=== PATIENT | female | born 1940 | race Caucasian/White ===

== ENCOUNTER → 2017-09-16 | Outpatient (CLI) | payer OTHER ==
[~2017-09-16] MED LIST: ASPIR 8181 MG PO; ATORVASTATIN CA40 MG PO; DILTIAZEM 24HR180 M3 PO; LEVOTHYROXIN0.025 MG PO; PRADAXA150 MG PO
--- NOTE | ~2017-09-16 | 2DMMODE ---
[facility] [address] [place] [address] 2 D/M-MODE ECHOCARDIOGRAM Name: AARON MITCHELL Room #: REG [facility]#: [id number] Admission: 09/16/17 Attend Phys: Jerry Mccauley Discharge: Date of : 38 Date of Service: 09/16/17 1611 Report #: [id number] THIS REPORT FOR: //name// APPROVED REPORT Study performed: 09/16/2017 14:45:59 EXAM: Comprehensive 2D, Doppler, and color-flow Echocardiogram Patient Location: Out-Patient Status: routine BSA: 1.82 HR: 81 bpm BP: 132/83 mmHg Rhythm: Atrial Fibrillation Other Information Study Quality: Adequate Indications Atrial Fibrillation Pacemaker 2D Dimensions RVDd: 33.81 mm LVEF(%): 55.76 (>50%) IVSd: 8.77 (7-11mm) LVOT Diam: 19.85 (18-24mm) LVDd: 45.71 mm PWd: 9.36 (7-11mm) LVDs: 32.47 (25-40mm) Aortic Root: 31.60 mm Wynn's LVEF: 55.76 % Volumes Left Atrial Volume (Systole) Single Plane 4CH: 52.63 mL Single Plane 2CH: 50.56 mL Aortic Valve AoV Peak Prudencio.: 1.10 m/s AO Peak Gr.: 6.45 mmHg LVOT Max P.61 mmHg LVOT Max V: 0.95 m/s DARREL Vmax: 2.67 cm2 Mitral Valve MV Decel. Time: 207.19 ms MV E Max Prudencio.: 0.80 m/s [facility] [address] [place] [address] 2 D/M-MODE ECHOCARDIOGRAM Name: PAULACAMAARONANDRÉS GARCIAEN Room #: [facility]#: [id number] Admission: 09/16/17 Attend Phys: Jerry Mccauley Discharge: Date of : 38 Date of Service: 09/16/17 1611 Report #: [id number] Pulmonary Valve PV Peak Prudencio.: 0.78 m/s PV Peak Gr.: 2.46 mmHg Tricuspid Valve TR Peak Prudencio.: 2.24 m/s RAP Estimate: 5.00 mmHg TR Peak Gr.: 20.10 mmHg PA Pressure: 25.00 mmHg Left Ventricle The left ventricle is normal size. There is normal left ventricular wall thickness. The left ventricular systolic function is normal. LVEF is 55%. This study is not technically sufficient to allow evaluation of the LV diastolic function due to atrial fibrillation. Right Ventricle The right ventricle is normal size. The right ventricular systolic function is normal. Atria Left atrium is mildly dilated. Right atrium is at the upper limits of normal. A pacemaker is seen in the right atrium consistent with history. Aortic Valve The Aortic valve is sclerotic. Trace aortic regurgitation. There is no aortic valvular stenosis. Mitral Valve Mild mitral annular calcification. The mitral valve is mildly thickened. Mild mitral regurgitation. No evidence of mitral valve stenosis. Tricuspid Valve The tricuspid valve is normal in structure. Mild to moderate tricuspid regurgitation. Estimated PAP 25 mmHg. Pulmonic Valve The pulmonary valve is normal in structure. Mild pulmonic regurgitation. Great Vessels The aortic root is normal in size. IVC is normal in size and collapses >50% with inspiration. [facility] [address] [place] [address] 2 D/M-MODE ECHOCARDIOGRAM Name: AARON MITCHELL Room #: REG [facility]#: [id number] Admission: 09/16/17 Attend Phys: Jerry Mccauley Discharge: Date of : 38 Date of Service: 09/16/17 1611 Report #: [id number] Pericardium There is no pericardial effusion. <Conclusion> The left ventricle is normal size. LVEF is 55%. Left atrium is mildly dilated. Right atrium is at the upper limits of normal. A pacemaker is seen in the right atrium consistent with history. The Aortic valve is sclerotic. Trace aortic regurgitation. Mild mitral annular calcification. The mitral valve is mildly thickened. Mild mitral regurgitation. The tricuspid valve is normal in structure. Mild to moderate tricuspid regurgitation. Estimated PAP 25 mmHg. The pulmonary valve is normal in structure. Mild pulmonic regurgitation. There is no pericardial effusion. <ELECTRONICALLY SIGNED> By: Rick Tong MD 09/16/17 161 10 10 Rick Tong MD /INF
[2017-09-16 16:03] LABS: CALCIUM 8.9 mg/dL (8.5-10.1); CREATININE 0.9 mg/dL (0.6-1.0); POTASSIUM 4.1 mmol/L (3.5-5.1)
[2017-09-16 16:09] LABS: ALBUMIN 3.7 g/dL (3.4-5.0); TOTAL BILIRUBIN 0.6 mg/dL (<0.1-1.0); TOTAL PROTEIN 7.1 g/dL (6.4-8.2)
== END ==
LOC: LABMALL 14:26 → CV 14:26
PROVIDERS: Internal Medicine Cardiovascular Disease
DX: I08.1 Rheumatic disorders of both mitral and tricuspid valves (principal); I48.0 Paroxysmal atrial fibrillation; Z95.1 Presence of aortocoronary bypass graft

== ENCOUNTER → 2017-11-11 | Outpatient (CLI) | payer OTHER ==
[~2017-11-11] VITALS: Ht 157.5 cm; Wt 59.9 kg
--- NOTE | ~2017-11-11 | P ---
[facility] [place] [address] PROCEDURE REPORT Name: AARON MITCHELL [id number] Admission: 11/11/17 Attend Phys: Jerry Mccauley MD Discharge: Date of : 38 Report #: [id number] THIS REPORT FOR: //name// CC: Dave Mccauley PROCEDURES PERFORMED: 1. External cardioversion. 2. Pacemaker interrogation and reprogramming. PREOPERATIVE DIAGNOSIS: Atrial fibrillation. POSTOPERATIVE DIAGNOSIS: Atrial fibrillation. PROCEDURE: The patient underwent informed consent. Her device was interrogated prior to the cardioversion showing that she was in AFib. The patient was sedated by the anesthesiology service and she underwent a 200 joule synchronized cardioversion with episcopalian of sinus rhythm. Post-cardioversion, I re-interrogated her pacemaker, her atrial and ventricular thresholds were unchanged. There were no complications and the patient awoke neurologically and hemodynamically intact. CONCLUSIONS: Successful cardioversion with stable pacemaker function. By: [id number] Jerry Mccauley MD /nt
[2017-11-11 10:14] VITALS: BP 116/71
[2017-11-11 10:25] LABS: HEMATOCRIT 38.1 % (37.0-47.0); HEMOGLOBIN 12.8 gm/dL (12.0-15.0); MCH 32.5 pg (26.0-34.0); MCHC 33.6 g/dL (28.0-37.0); MCV 96.7 fL (80.0-100.0); RBC 3.94 mil/uL (4.20-5.00); RDW 12.9 % (10.5-14.5); WBC 6.8 thou/uL (4.0-11.0)
[2017-11-11 10:34] LABS: CREATININE 0.8 mg/dL (0.6-1.0); POTASSIUM 3.8 mmol/L (3.5-5.1)
[2017-11-11 10:42] LABS: APTT 44.8 Seconds (24.5-32.8); INR 1.2; PROTIME 12.6 Seconds (9.3-11.4)
== END | disposition home or self-care (01) ==
LOC: CATH 09:43
PROVIDERS: Internal Medicine Cardiovascular Disease
DX: I48.91 Unspecified atrial fibrillation (principal); E78.5 Hyperlipidemia, unspecified; E03.9 Hypothyroidism, unspecified; H40.9 Unspecified glaucoma; F17.210 Nicotine dependence, cigarettes, uncomplicated; Z98.890 Other specified postprocedural states; Z79.899 Other long term (current) drug therapy; Z79.82 Long term (current) use of aspirin
CPT/HCPCS: 62110; 62900

== ENCOUNTER → 2017-12-04 | Outpatient (CLI) | payer OTHER | LOC: ULTRA 05:45 → CAT 17:53 | DX: J98.11 Atelectasis (principal); I71.4 Abdominal aortic aneurysm, without rupture; I48.0 Paroxysmal atrial fibrillation ==

== ENCOUNTER → 2019-02-25 | Outpatient (CLI) | payer OTHER ==
--- NOTE | 2019-02-25 11:19 | 2DMMODE ---
[facility] [place] [address] 2 D/M-MODE ECHOCARDIOGRAM Name: PAULAAARON Room #: REG [facility]#: [id number] ������������� Admission: 02/25/19 ������������� Attend Phys: Olivia Orosco Discharge: ��� ������������� ��� Date of : 38 Date of Service: 02/25/19 1119 �� Report #: [id number] �������� ��������������������������������������������[id number] THIS REPORT FOR: //name// APPROVED REPORT Study performed: 02/25/2019 10:11:16 EXAM: Comprehensive 2D, Doppler, and color-flow Echocardiogram Patient Location: Out-Patient Status: routine BSA: 1.68 HR: 84 bpm BP: 120/78 mmHg Rhythm: NSR Other Information Study Quality: Adequate Indications Atrial Fibrillation Pacemaker. 2D Dimensions RVDd: 33.48 mm IVSd: 13.43 (7-11mm) LVOT Diam: 19.35 (18-24mm) LVDd: 31.30 mm PWd: 9.05 (7-11mm) LVDs: 23.29 (25-40mm) Aortic Root: 35.23 mm Volumes Left Atrial Volume (Systole) Single Plane 4CH: 31.06 mL Single Plane 2CH: 46.74 mL LA ESV Index: 25.00 mL/m2 Aortic Valve AoV Peak Prudencio.: 1.05 m/s AO Peak Gr.: 4.45 mmHg LVOT Max P.15 mmHg LVOT Max V: 0.73 m/s DARREL Vmax: 2.04 cm2 Mitral Valve E/A Ratio: 0.9 MV Decel. Time: 158.39 ms [facility] [address] [place] [address] 2 D/M-MODE ECHOCARDIOGRAM Name: AARON MITCHELL Room #: REG [facility]#: [id number] ������������� Admission: 02/25/19 ������������� Attend Phys: Olivia Orosco Discharge: ��� ������������� ��� Date of : 38 Date of Service: 02/25/19 1119 �� Report #: [id number] �������� ��������������������������������������������[id number] MV E Max Prudencio.: 0.49 m/s MV A Prudencio.: 0.56 m/s MV PHT: 45.93 ms IVRT: 103.81 ms Pulmonary Valve PV Peak Prudencio.: 0.52 m/s PV Peak Gr.: 1.07 mmHg Pulmonary Vein P Vein S: 0.47 m/s P Vein D: 0.27 m/s P Vein S/D Ratio: 1.74 Tricuspid Valve TR Peak Prudencio.: 2.31 m/s RAP Estimate: 5.00 mmHg TR Peak Gr.: 21.26 mmHg PA Pressure: 26.00 mmHg Left Ventricle The left ventricle is normal size. There is normal LV segmental wall motion. Mild basal septal hypertrophy is present. Left ventricular systolic function is normal. LVEF is 55-60%. Mild diastolic dysfunction is present (impaired relaxation pattern). Right Ventricle The right ventricle is normal size. The right ventricular systolic function is normal. Pacemaker lead is present in the right ventricle. Atria The left atrium size is normal. The right atrium size is normal. Aortic Valve The Aortic valve is mildly sclerotic. Trace aortic regurgitation. There is no aortic valvular stenosis. Mitral Valve Mitral valve leaflets are mildly thickened. Mild mitral annular calcification. Trace mitral regurgitation. Tricuspid Valve The tricuspid valve is normal in structure. Moderate tricuspid regurgitation. Estimated PAP is 25-30mmHg. Pulmonic Valve The pulmonary valve is normal in structure. Trace pulmonic [facility] [address] [place] [address] 2 D/M-MODE ECHOCARDIOGRAM Name: AARON MITCHELL Room #: REG [facility]#: [id number] ������������� Admission: 02/25/19 ������������� Attend Phys: Olivia Orosco Discharge: ��� ������������� ��� Date of : 38 Date of Service: 02/25/19 1119 �� Report #: [id number] �������� ��������������������������������������������[id number] regurgitation. Great Vessels The aortic root is normal in size. Ascending aorta is not well visualized. IVC is normal in size and collapses >50% with inspiration. Pericardium There is no pericardial effusion. <Conclusion> The left ventricle is normal size. LVEF is 55-60%. The right ventricular systolic function is normal. Pacemaker lead is present in the right ventricle. The Aortic valve is mildly sclerotic. Trace aortic regurgitation. Mitral valve leaflets are mildly thickened. Mild mitral annular calcification. Trace mitral regurgitation. The tricuspid valve is normal in structure. Moderate tricuspid regurgitation. Estimated PAP is 25-30mmHg. The pulmonary valve is normal in structure. Trace pulmonic regurgitation. There is no pericardial effusion. ��������������������������������������������� <ELECTRONICALLY SIGNED> ���������������������������������������� By: Rick Tong MD ��������������������������������������������� 02/25/19 1119 1119 111 Rick Tong MD /INF
== END ==
LOC: CV 09:39
DX: I08.3 Combined rheumatic disorders of mitral, aortic and tricuspid valves (principal); I48.0 Paroxysmal atrial fibrillation; I49.5 Sick sinus syndrome; Z95.0 Presence of cardiac pacemaker

== ENCOUNTER → 2019-03-08 | Outpatient (CLI) | payer OTHER ==
[2019-03-08 10:46] LABS: CALCIUM 8.8 mg/dL (8.5-10.1); CREATININE 0.7 mg/dL (0.6-1.0); POTASSIUM 4.2 mmol/L (3.5-5.1)
== END ==
LOC: CAT 09:52
PROVIDERS: Nurse Practitioner
DX: I71.4 Abdominal aortic aneurysm, without rupture (principal); I71.2 Thoracic aortic aneurysm, without rupture; I72.3 Aneurysm of iliac artery; I48.0 Paroxysmal atrial fibrillation; K55.069 Acute infarction of intestine, part and extent unspecified; I49.5 Sick sinus syndrome; J98.11 Atelectasis; M16.0 Bilateral primary osteoarthritis of hip; N28.1 Cyst of kidney, acquired; Z95.0 Presence of cardiac pacemaker

== ENCOUNTER → 2020-02-28 | Outpatient (CLI) | payer OTHER ==
[2020-02-28 09:26] LABS: CREATININE 0.7 mg/dL (0.6-1.0)
== END ==
LOC: CAT 08:39
PROVIDERS: ATTEND Internal Medicine Cardiovascular Disease
DX: I71.4 Abdominal aortic aneurysm, without rupture (principal); I48.91 Unspecified atrial fibrillation; I48.0 Paroxysmal atrial fibrillation; I49.5 Sick sinus syndrome; I71.2 Thoracic aortic aneurysm, without rupture; Z95.0 Presence of cardiac pacemaker

== ENCOUNTER → 2020-03-01 | Outpatient (CLI) | payer OTHER | LOC: SJCVCIMAG 13:27 | PROVIDERS: ATTEND Internal Medicine Cardiovascular Disease | DX: I08.8 Other rheumatic multiple valve diseases (principal); R94.31 Abnormal electrocardiogram [ECG] [EKG]; I71.4 Abdominal aortic aneurysm, without rupture; I48.0 Paroxysmal atrial fibrillation; I49.5 Sick sinus syndrome; Z95.0 Presence of cardiac pacemaker; F17.210 Nicotine dependence, cigarettes, uncomplicated; Z79.899 Other long term (current) drug therapy ==

== ENCOUNTER → 2020-11-13 | Outpatient (CLI) | payer OTHER ==
[~2020-11-13] MED LIST changes: -ATORVASTATIN CA40 MG PO; +HYDROCODON-ACE1 EAC7 PO; -LEVOTHYROXIN0.025 MG PO; +LIPITOR40 MG PO; +SYNTHROID25 MC1 PO; +TOPROL XL50 MG PO
== END ==
LOC: LAB 11:32
PROVIDERS: ATTEND Surgery
DX: Z20.822 Contact with and (suspected) exposure to COVID-19 (principal)

== ENCOUNTER 2020-11-16 07:01 | Day surgery (SDC) | payer OTHER ==
[~2020-11-16] VITALS: Ht 157.5 cm; Wt 62.6 kg
[~2020-11-16 07:01] MED LIST changes: -HYDROCODON-ACE1 EAC7 PO
[2020-11-16] MEDS ORDERED: HYDROCODON-ACE1 EAC7 PO (11:05)
[2020-11-16 11:17] VITALS: BP 141/93
--- NOTE | 2020-11-19 17:06 | PATH ---
[facility] [place] [address] PATHOLOGY RPT PROCEDURE Name: JULISSA MITCHELL Room #: DEP [facility]..#: [id number] Admission: 11/16/20 Date of : 38 Discharge: 11/16/20 Report #: [id number] Path Case #: [id number] [facility] Accession Number: [id number] . 01 Material submitted: . hand - RIGHT HAND SKIN CANCER FS. Modifiers: right . 01 Clinical history: . EXCISION OF LESION RIGHT HAND SKIN CANCER . 02 Frozen section diagnosis: . INTRAOPERATIVE CONSULTATION WITH FROZEN SECTION: (Dr. Rachel Bond) . FSA1. Right hand skin cancer, excision: - Sole Leveling Machine Operator sections submitted as a 5.5 cm excision. - No definite invasive carcinoma at margins on frozen section slide. . These findings are discussed with Dr. Kaiser Parrish in OR1 and a written report is placed in the patient's chart. (IUV:mml; 11/16/2020) . . FROZEN SECTION GROSS DESCRIPTION: Received fresh from the OR labeled, "Julissa Mitchell - Right hand skin cancer" is an oriented ellipse of skin measuring 5.5 x 2.0 x 0.3 cm. There is a suture designated as lateral, and a smaller suture indicating cephalad with the opposite end indicating caudad. The lateral margin is designated 6:00 and the cephalad margin is designated 9:00. The caudad margin is designated 3:00. The 12-3:00 is inked black, 3-6:00 is inked yellow, 6-9:00 is inked blue, and 9-12:00 is inked green. At this time the specimen is serially sectioned. Sole Leveling Machine Operator sections from the center of the specimen (indicated by Dr. Parrish as closest possible margin) are submitted for frozen section as FSA1, this is subsequently submitted for permanent section as A1. The 12-3:00 end of the specimen is submitted in A2 and the 3-6:00 end of the specimen is submitted in A3. The tips are submitted in A4. (IUV:mml; 11/16/2020) . Frozen section performed at [facility], [address] , [place] [address]. . IZV/QLM . 02 Diagnosis: Skin, right hand skin cancer, excision: - ULCERATED SQUAMOUS CELL CARCINOMA. [facility] [address] [place] [address] PATHOLOGY RPT PROCEDURE Name: JULISSA MITCHELL Room #: DEP [facility]#: [id number] Admission: 11/16/20 Date of : 38 Discharge: 11/16/20 Report #: [id number] Path Case #: [id number] - Margins of resection widely free of malignancy in the sections examined. (IUV:stephan; 11/19/2020) QMS 11/19/2020 1517 Local . 02 Electronically signed: . Rachel Bond MD, Pathologist NPI- [id number] . 03 Gross description: . PLEASE SEE FROZEN SECTION GROSS DESCRIPTION /MBR 11/19/2020 1516 Local . 02 Pathologist provided ICD-10: C44.622 . 02 CPT . 897903, 128180 Specimen Comment: A courtesy copy of this report has been sent to [phone] Specimen Comment: Report sent to Performed at: [address] [facility] [place] [id number] MD Aung Bustillo MD Phone: [phone] Performed at: [address] [facility] [id number] MD Rachel Bond MD Phone: [phone] Performed at: [address] [facility] [address], [place], [place] [id number] MD Balta Perry MD Phone: [phone]
--- NOTE | 2020-11-27 11:03 | O ---
[facility] [place] [address] OPERATIVE REPORT Name: AARON MITCHELL Room #: DEP [facility].#: [id number] Admission: 11/16/20 Attend Phys: Kaiser Parrish MD Discharge: 11/16/20 Date of : 38 Report #: [id number] THIS REPORT FOR: cc: Dave Ware MD, Christopher B. MD Chu,Kaiser Tinoco MD ~ PREOPERATIVE DIAGNOSIS: Right hand lesion consistent with skin cancer, measuring 2 x 1.5 cm, located between the thumb and index finger. POSTOPERATIVE DIAGNOSIS: Right hand lesion consistent with skin cancer, measuring 2 x 1.5 cm, located between the thumb and index finger. PROCEDURES PERFORMED: Elliptical excision, wide excision of right hand skin cancer. Ellipse measuring 3.2 x 6 cm and skin elevation and skin transfer. ANESTHESIA: IV sedation, local 0.25% Marcaine. SURGEON: Kaiser Parrish MD COMPLICATIONS: None. ESTIMATED BLOOD LOSS: 10 mL. PROCEDURE NOTE: With the right hand prepped and draped in sterile fashion, timeout was performed. IV antibiotic was administered. Local anesthetic was used to anesthetize the skin and essentially elevating the skin off the deeper tissue. An ellipse was drawn, the ellipse measured 6 cm in length and 3.2 cm in width. This was oriented in the direction of the skin lesion, so to avoid excising excessive skin. A 15 blade was used to incise the skin lesion. The skin was then lifted off of the subcutaneous tissue. The skin was oriented for the pathologist with a short suture cephalad and then a long suture placed laterally. The margin was felt to be closest caudally and slightly medially. This was pointed out for the pathologist. Frozen section was performed and the margins were negative in this area of concern. The other areas are wider apart. The more lateral portion of the skin flap was lifted off the subcutaneous tissue. The skin was brought together primarily with this elevating of the skin transferring the skin. With her thumb in an extended position, the incision was able to be closed rather easily without any tension. A 4-0 Vicryl suture was used to close a small superficial arterial bleeder. Skin was closed with 5-0 nylon in interrupted fashion. Several of these are vertical mattress suture. Antibiotic ointment was placed over the incisions. 4 x 4 was placed over the incision, Macho was used to wrap the hand, a 3-inch Russ was placed. A small hole was cut on the Russ wrap for the thumb. [place] [address] OPERATIVE REPORT Name: AARON MITCHELL Room #: DEP [facility] Christina#: [id number] Admission: 11/16/20 Attend Phys: Kaiser Parrish MD Discharge: 11/16/20 Date of : 38 Report #: [id number] slightly extended position, nothing real exaggerated. The patient was awakened and taken to recovery room, tolerated the procedure well. <ELECTRONICALLY SIGNED> By: Kaiser Parrish MD 11/27/20 1103 1613 1630 Kaiser Parrish MD /nt
== END 2020-11-16 11:55 | disposition home or self-care (01) ==
LOC: TBA 07:01 → OR 07:01 → TBA 07:02 → OR 09:11
PROVIDERS: ATTEND Surgery
DX: C44.622 Squamous cell carcinoma of skin of right upper limb, including shoulder (principal); I10 Essential (primary) hypertension; E78.5 Hyperlipidemia, unspecified; I48.91 Unspecified atrial fibrillation; E03.9 Hypothyroidism, unspecified; F17.210 Nicotine dependence, cigarettes, uncomplicated; Z98.890 Other specified postprocedural states; Z79.899 Other long term (current) drug therapy; Z95.0 Presence of cardiac pacemaker; Z96.691 Finger-joint replacement of right hand; Z79.01 Long term (current) use of anticoagulants
CPT/HCPCS: 50010; 50101; 50386; 56526; 56528; 57091; 62110; 62850; 70005

== ENCOUNTER → 2021-02-07 | Outpatient (CLI) | payer OTHER ==
[~2021-02-07] MED LIST changes: +HYDROCODON-ACE1 EAC7 PO
[2021-02-07 09:55] VITALS: BP 135/60
[2021-02-07 11:02] VITALS: BP 107/62; BP 128/85
[2021-02-07 13:50] VITALS: BP 101/71; BP 125/81; BP 128/85
== END ==
LOC: OPONC 09:02
PROVIDERS: ATTEND Internal Medicine
DX: K92.2 Gastrointestinal hemorrhage, unspecified (principal)
CPT/HCPCS: 91030

== ENCOUNTER → 2021-02-26 | Outpatient (CLI) | payer OTHER | LOC: SJCVC 11:30 | PROVIDERS: ATTEND Internal Medicine Cardiovascular Disease | DX: I48.91 Unspecified atrial fibrillation (principal); R94.31 Abnormal electrocardiogram [ECG] [EKG]; I71.4 Abdominal aortic aneurysm, without rupture; I49.5 Sick sinus syndrome; F17.200 Nicotine dependence, unspecified, uncomplicated; Z95.828 Presence of other vascular implants and grafts; Z79.899 Other long term (current) drug therapy; Z95.0 Presence of cardiac pacemaker ==

== ENCOUNTER → 2021-02-26 | Outpatient (CLI) | payer OTHER ==
[2021-02-26 11:30] LABS: CREATININE 0.8 mg/dL (0.6-1.0)
== END ==
LOC: CAT 08:39
PROVIDERS: ATTEND Internal Medicine Cardiovascular Disease
DX: N28.1 Cyst of kidney, acquired (principal); I71.4 Abdominal aortic aneurysm, without rupture; M47.815 Spondylosis without myelopathy or radiculopathy, thoracolumbar region

== ENCOUNTER → 2021-03-13 | Outpatient (CLI) | payer OTHER ==
[~2021-03-13] VITALS: Ht 157.5 cm; Wt 61.2 kg
[2021-03-13 11:51] LABS: ABSOLUTE NEUTROPHILS 2.8 thou/uL (1.4-8.2); BASOPHILS 1.2 % (0.0-2.0); EOSINOPHILS 3.5 % (0.0-3.0); HEMOGLOBIN 11.5 gm/dL (12.0-15.0); MCH 29.7 pg (26.0-34.0); MCHC 32.7 g/dL (28.0-37.0); MCV 90.8 fL (80.0-100.0); MONOCYTES 10.3 % (1.0-8.0); PLATELET COUNT 168 thou/uL (150-400); RBC 3.86 mil/uL (4.20-5.00); RDW 16.2 % (10.5-14.5); WBC 4.5 thou/uL (4.0-11.0)
[2021-03-13 12:05] LABS: INR 1.46; PROTIME 15.6 Seconds (10.5-12.1)
[2021-03-13 12:08] LABS: CALCIUM 8.3 mg/dL (8.5-10.1); CREATININE 0.8 mg/dL (0.6-1.0); POTASSIUM 4.3 mmol/L (3.5-5.1)
[2021-03-13 12:14] LABS: ALBUMIN 3.1 g/dL (3.4-5.0); TOTAL BILIRUBIN 0.8 mg/dL (0.2-1.0); TOTAL PROTEIN 7.3 g/dL (6.4-8.2)
--- NOTE | 2021-03-25 15:45 | P ---
[facility] [place] [address] PROCEDURE REPORT Name: AARON MITCHELL Room #: REG [facility]#: [id number] Admission: 03/13/21 Attend Phys: Jerry Mccauley MD Discharge: Date of : 38 Report #: [id number] THIS REPORT FOR: cc: Dave Ware MD, Christopher B. MD Couchonnal,Jerry Jurado MD ~ DATE OF SERVICE: 03/13/2021 CARDIOVERSION PREOPERATIVE DIAGNOSIS: Atrial fibrillation. POSTOPERATIVE DIAGNOSIS: Atrial fibrillation. PROCEDURES PERFORMED: 1. Atrial fibrillation ablation. 2. Postprocedural device reprogramming. DESCRIPTION OF PROCEDURE: The patient was underwent informed consent. She was prepped in the standard fashion. Patches placed in the AP position. She was sedated by anesthesia. Once sedated, underwent a 200 joule synchronized cardioversion with oriental orthodox of sinus rhythm. Her pacemaker was interrogated, showing she was in sinus rhythm and I did program on atrial ATP to hopefully terminate any future episodes. CONCLUSIONS: 1. Successful direct current cardioversion. 2. Successful pacemaker reprogramming. <ELECTRONICALLY SIGNED> By: Jerry Mccauley MD 03/25/21 1545 1122 [id number] Jerry Mccauley MD /nt
== END | disposition home or self-care (01) ==
LOC: CATH 07:19
PROVIDERS: ATTEND Internal Medicine Cardiovascular Disease
DX: I48.91 Unspecified atrial fibrillation (principal); I10 Essential (primary) hypertension; E78.00 Pure hypercholesterolemia, unspecified; E03.9 Hypothyroidism, unspecified; M81.0 Age-related osteoporosis without current pathological fracture; M06.9 Rheumatoid arthritis, unspecified; Z98.890 Other specified postprocedural states; Z79.899 Other long term (current) drug therapy; Z87.891 Personal history of nicotine dependence; Z95.0 Presence of cardiac pacemaker
CPT/HCPCS: 62110; 62900

== ENCOUNTER → 2021-03-20 | Outpatient (CLI) | payer OTHER | LOC: SJCVC 12:46 | PROVIDERS: ATTEND Nuclear Medicine Nuclear Cardiology | DX: I71.4 Abdominal aortic aneurysm, without rupture (principal); I48.91 Unspecified atrial fibrillation; I10 Essential (primary) hypertension; E78.00 Pure hypercholesterolemia, unspecified; Z95.0 Presence of cardiac pacemaker; I48.0 Paroxysmal atrial fibrillation; E03.9 Hypothyroidism, unspecified; Z79.899 Other long term (current) drug therapy; Z87.891 Personal history of nicotine dependence; Z82.49 Family history of ischemic heart disease and other diseases of the circulatory system ==

== ENCOUNTER → 2021-04-16 | Outpatient (CLI) | payer OTHER | LOC: SJCVC 10:51 | PROVIDERS: ATTEND Internal Medicine Cardiovascular Disease | DX: R94.31 Abnormal electrocardiogram [ECG] [EKG] (principal); I48.91 Unspecified atrial fibrillation; I10 Essential (primary) hypertension; E78.00 Pure hypercholesterolemia, unspecified; I49.5 Sick sinus syndrome; E03.9 Hypothyroidism, unspecified; Z95.0 Presence of cardiac pacemaker; Z98.890 Other specified postprocedural states; Z79.899 Other long term (current) drug therapy; Z87.891 Personal history of nicotine dependence; Z82.49 Family history of ischemic heart disease and other diseases of the circulatory system ==

== ENCOUNTER → 2021-07-16 | Outpatient (CLI) | payer OTHER | LOC: SJCVC 12:33 | PROVIDERS: ATTEND Internal Medicine Cardiovascular Disease | DX: R94.31 Abnormal electrocardiogram [ECG] [EKG] (principal); I48.91 Unspecified atrial fibrillation; I49.5 Sick sinus syndrome; I71.4 Abdominal aortic aneurysm, without rupture; E03.9 Hypothyroidism, unspecified; I48.0 Paroxysmal atrial fibrillation; Z95.0 Presence of cardiac pacemaker; Z79.899 Other long term (current) drug therapy; Z82.49 Family history of ischemic heart disease and other diseases of the circulatory system; Z87.891 Personal history of nicotine dependence ==

== ENCOUNTER → 2021-09-24 | Outpatient (CLI) | payer OTHER ==
[~2021-09-24] MED LIST changes: +FLECAINIDE ACET50 M2 PO
== END ==
LOC: SJCVC 13:19
PROVIDERS: ATTEND Internal Medicine Cardiovascular Disease
DX: I51.7 Cardiomegaly (principal); R94.31 Abnormal electrocardiogram [ECG] [EKG]; I48.91 Unspecified atrial fibrillation; I49.5 Sick sinus syndrome; Z95.0 Presence of cardiac pacemaker; I49.8 Other specified cardiac arrhythmias; R53.83 Other fatigue; E03.9 Hypothyroidism, unspecified; Z98.890 Other specified postprocedural states; C44.90 Unspecified malignant neoplasm of skin, unspecified; Z79.899 Other long term (current) drug therapy; Z87.891 Personal history of nicotine dependence